=== PATIENT | female | born 1980 | race Caucasian/White ===

== ENCOUNTER 2020-09-01 04:44 | Emergency (ER) | payer MEDICAID ==
[~2020-09-01] VITALS: Ht 154.9 cm; Wt 57.0 kg
[2020-09-01] MEDS ORDERED: KETOROLAC 30MG/ML VIAL IV STA (05:22)
[2020-09-01] MEDS ORDERED: ONDANSETRON HCL 4MG/2ML INJ IV STA (05:22)
[2020-09-01 05:49] LABS: BASOPHILS % 0.3 % (0.0-2.0); EOSINOPHILS % 2.2 % (0.0-5.0); HEMATOCRIT. 37.9 % (36.0-48.0); HEMOGLOBIN. 12.4 g/dL (12.0-16.0); LYMPHOCYTES % 35.6 % (20.0-50.0); MEAN CORPUSCULAR HEMOGLOBIN 28.7 pg (28.0-32.0); MEAN CORPUSCULAR VOLUME 87.8 fL (81.0-99.0); MEAN PLATELET VOLUME 9.3 fl (7.4-10.4); MONOCYTES % 6.4 % (2.0-8.0); NEUTROPHILS % 55.5 % (40.0-76.0); PLATELET 240 x1000/uL (130-400); RED BLOOD CELL COUNT 4.32 mill/uL (4.2-5.4); RED CELL DISTRIBUTION WIDTH 15.7 % (11.6-14.6)
[2020-09-01 05:58] LABS: CLARITY URINE CLEAR (CLEAR); COLOR URINE YELLOW (YELLOW); KETONES URINE NEGATIVE (NEGATIVE); LEUKOCYTE ESTERASE URINE NEGATIVE (NEGATIVE); NITRITE URINE NEGATIVE (NEGATIVE); OCCULT BLOOD URINE NEGATIVE (NEGATIVE); PROTEIN URINE NEGATIVE (NEGATIVE); SPECIFIC GRAVITY URINE 1.005 (1.005-1.030); UROBILINOGEN URINE 0.2 E.U./dL (0.2-1.0)
[2020-09-01 06:02] LABS: CHLORIDE 109 mEq/L (98-107)
[2020-09-01] MEDS ORDERED: T3 PO (06:15)
[2020-09-01] MEDS ORDERED: IBUP-2028 PO (06:15)
[2020-09-01] MEDS ORDERED: ONDA4TAB5 PO (06:19)
[2020-09-01 06:51] VITALS: BP 105/69
== END 2020-09-01 06:57 | disposition home or self-care (01) ==
LOC: ER 04:44
DX: M25.59 Pain in other specified joint (principal); R11.2 Nausea with vomiting, unspecified
CPT/HCPCS: 36415; 71045; 80053; 81003; 85025; 96374; 96375; 99284; J1885; J2405

== ENCOUNTER 2021-04-10 08:03 | Emergency (ER) | payer SELFPAY ==
[~2021-04-10] VITALS: Ht 154.9 cm; Wt 61.0 kg
[~2021-04-10 08:03] MED LIST: IBUP-2028 PO; ONDA4TAB5 PO; T3 PO
[2021-04-10 08:07] VITALS: BP 105/51
[2021-04-10] MEDS ORDERED: DEXAMETHASONE 4MG TABLET PO ONE (08:30)
[2021-04-10] MEDS ORDERED: ACETAMINOPHEN 325MG TABLET PO ONE (08:30)
[2021-04-10] MEDS ORDERED: IBUP-2029 MT (10:28)
== END 2021-04-10 10:56 | disposition home or self-care (01) ==
LOC: ER 08:03
DX: R59.1 Generalized enlarged lymph nodes (principal); Z13.9 Encounter for screening, unspecified
CPT/HCPCS: 81025; 87070; 87430; 99283; J8540